=== PATIENT | male | born 1965 | race Caucasian/White ===

== ENCOUNTER 2022-06-06 16:14 | Outpatient (CLI) | payer OTHER, SELFPAY ==
--- NOTE | ~2022-06-06 | MR_ITS ---
EXAMINATION: MR lumbar spine wo con DATE: 06/06/2022 16:45 INDICATION: Low back pain and bilateral hip pain TECHNIQUE: Magnetic resonance imaging (MRI) of the lumbar spine was performed without intravenous con trast. Sequences included sagittal T2-weighted FSE, sagittal T2-weighted FS FSE, sagittal T1-weighted FSE, and axial T2-weighted FSE. COMPARISON: None FINDINGS: Alignment is normal. Mild anterior wedging at T12 and L1 with 20% anterior vertebral body height loss . Marrow signal remains normal. Moderate disc height loss at T12-L1 and mild disc height loss at T11- T12, L4-L5 and L5-S1. Annular fissures anteriorly at L1-L2, L3-L4 and L4-L5 The conus medullaris term inates at L1. There is normal signal in the caudal spinal cord. Paravertebral soft tissues are unrema rkable. The following disc levels are specifically discussed: T12-L1: Disc is mildly bulging. There is mild bilateral facet joint osteoarthritis. There is no neura l foraminal stenosis. There is no central canal stenosis. L1-L2: The disc does not extend beyond the endplate margin. There is mild bilateral facet joint osteo arthritis. There is minimal bilateral neural foraminal stenosis. There is no central canal stenosis. L2-L3: Disc is mildly bulging. There is mild bilateral facet joint osteoarthritis. There is mild bila teral neural foraminal stenosis. There is no central canal stenosis. L3-L4: Disc is mildly bulging. There is mild bilateral facet joint osteoarthritis. There is mild bila teral neural foraminal stenosis. There is no central canal stenosis. L4-L5: Disc is bulging. There is mild to moderate bilateral facet joint osteoarthritis. There is mild bilateral neural foraminal stenosis. There is minimal central canal stenosis. L5-S1: Disc is mildly bulging. There is moderate right and severe left facet joint osteoarthritis. Th ere is mild bilateral neural foraminal stenosis. There is no central canal stenosis. IMPRESSION: 1. Mild lumbar spondylosis. Reviewed, dictated and finalized at location A. IMPRESSION: 1. Mild lumbar spondylosis.
== END 2022-06-06 16:15 ==
LOC: MICIMG 16:17
PROVIDERS: PCP Family Medicine Sports Medicine; Visit Provider Nurse Practitioner Family
DX: M54.16 Radiculopathy, lumbar region (principal); M43.06 Spondylolysis, lumbar region
CPT/HCPCS: 72148